=== PATIENT | male | born 2000 | race Hispanic/Latino ===

== ENCOUNTER 2023-01-14 01:40 | Emergency (ER) | payer SELFPAY ==
[2023-01-14] VITALS (11 sets, daily range): BP systolic 108–141; BP diastolic 60–79; PULSE 60–82; RESP 18–20; TEMP 36.8; O2SAT 96–100
--- NOTE | ~2023-01-14 | CT_ITS ---
Non-contrast CT scan of the Abdomen and Pelvis Clinical indication: Kidney stone Technique: 2.5 mm axial scans were obtained through the abdomen and pelvis without intravenous or or al contrast. Dose reduction technique was used on this scan by utilizing automated exposure control a nd iterative reconstruction technique. The dose-length product (DLP) was 161.46 mGy-cm. Findings: Images through the lung bases reveal no abnormalities. There is no evidence of renal or ureteral calculi. The kidneys and the ureters are nondilated. The liver, spleen, pancreas, gallbladder, and adrenals appear normal. There is no aortic aneurysm. There is no evidence of bowel obstruction. Normal appendix probably present. Images through the pelvis were performed. There is no evidence of ascites or lymphadenopathy. Urinary bladder unremarkable. No pelvic mass seen. Impression: No significant abnormality seen. Reviewed, dictated and finalized at [facility]. Impression: No significant abnormality seen.
[2023-01-14 03:05] LABS: Basophils Percent Auto 0.6 % (0.2-1.2); Eosinophils Absolute Auto 0.2 K/mm3 (0-0.3); Eosinophils Percent Auto 2.1 % (0-4.4); Hematocrit 40.7 % (42.0-52.0); Hemoglobin 13.9 g/dL (14.0-18.0); Immature Granulocyte Absolute 0.02 K/mm3 (0.00-0.031); Immature Granulocyte Percent A 0.3 % (0-0.5); Lymphocytes Absolute Auto 2.04 K/mm3 (0.9-3.2); Lymphocytes Percent Auto 28.7 % (18.3-44.2); Mean Corpuscular HGB Conc 34.2 g/dl (32-36); Mean Corpuscular Hemoglobin 28.5 pg (26-34); Mean Corpuscular Volume 83.6 fl (80-100); Mean Platelet Volume 9.3 fl (7.4-10.4); Monocytes Absolute Auto 0.6 K/mm3 (0.1-0.6); Neutrophils Absolute Auto 4.3 K/mm3 (1.3-6.7); Neutrophils Percent Auto 60.3 % (45.5-73.1); Platelet Count Result 244 k/mm3 (150-375); Red Blood Count 4.87 M/mm3 (4.6-6.20); Red Cell Distribution Width 13.1 % (11.5-14.5); White Blood Count 7.1 K/mm3 (4.5-10.0)
[2023-01-14 03:09] LABS: Appearance Urine Clear (Clear); Bilirubin Urine Negative (Negative); Blood Urine Negative (Negative); Color Urine Yellow (Yellow); Glucose Urine UA Negative (Negative); Ketones Urine Negative (Negative); Leukocyte Esterase Ur Negative LEU/UL (Negative); Nitrate Urine Negative (Negative); Protein Urine Negative (Negative); Specific Grav Ur 1.012 (1.001-1.035); pH Urine 6.5 (5.0-9.0)
[2023-01-14 03:10] LABS: Add Urine Microscopic? NO
[2023-01-14 03:14] LABS: Alanine Aminotransferase 26 U/L (6-50); Albumin Level 5.1 g/dL (3.5-5.1); Alkaline Phosphatase 72 U/L (38-126); Anion Gap 10 mmol/L (8-16); Aspartate Amino Transferase 25 U/L (17-59); Bilirubin,Total 0.6 mg/dL (0.2-1.3); Blood Urea Nitrogen 12 mg/dL (9-20); Calcium 9.3 mg/dL (8.4-10.2); Carbon Dioxide 26 mmol/L (22-30); Chloride 101 mmol/L (98-107); Estimated CRCL calculation 108 ml/min; Estimated Glomerular Filt Rate > 60; Glucose 93 mg/dL (65-110); Lipase 39 U/L (23-300); Potassium 3.6 mmol/L (3.4-5.0); Sodium 137 mmol/L (137-145)
[2023-01-14] MEDS: IBUPROFEN 400 MG TABLET 800 MG PO (04:06)
[2023-01-14] MEDS: ACETAMINOPHEN 500 MG TABLET 1000 MG PO (04:07)
[2023-01-14] MEDS: methocarbamoL 750 MG TABLET 1500 MG PO (04:09)
--- NOTE | 2023-01-14 04:41 | ED.GENADULT ---
HPI - General Adult General Chief complaint: Abdominal Pain Stated complaint: abd pain Time Seen by Provider: 01/14/23 02:27 History of Present Illness HPI narrative: 22-year-old Greenlandic-speaking male presenting with flank and suprapubic pain. a certified fraud representative was used for all communication. Patient has been having left-sided flank pain on and off for the last week. Pain started in his left flank and has now migrated to the suprapubic area. It is a sharp pressure-like pain is 8/10 intensity comes and goes. He has never experienced pain like this before there are no exacerbating alleviating factors. He denies dysuria, urinary urgency or frequency. He has not had issues with initiating a urine stream. Denies fever chills nausea vomiting or diarrhea. He has not taken anything for pain. Related Data Allergies Allergy/AdvReac Type Severity Reaction Status Date / Time No Known Allergies Allergy Verified 01/14/23 02:35 Exam Narrative: APPEARANCE: No apparent distress. Head: atraumatic. EYES: EOMI, NOSE: Atraumatic NECK: Trachea midline RESPIRATORY: No increased rate of breathing CTAB CARDIOVASCULAR: RRR, ABDOMINAL: Abdomen is soft nontender with no guarding or rebound. No tenderness in suprapubic area. No CVA tenderness. MUSCULOSKELETAl: No obvious deformities NEURO: Alert. Moving 4/4 extremities SKIN:: Warm, dry. Normal color PSYCHIATRIC: Normal affect Course Vital Signs Vital signs: Vital Signs Temperature 98.2 F 01/14/23 01:44 Pulse Rate 66 01/14/23 01:44 Respiratory Rate 20 01/14/23 01:44 Blood Pressure 141/70 H 01/14/23 01:44 Pulse Oximetry 99 01/14/23 01:44 Oxygen Delivery Room Air 01/14/23 01:44 Temperature 98.2 F 01/14/23 01:44 Pulse Rate 63 01/14/23 04:37 Respiratory Rate 18 01/14/23 04:37 Blood Pressure 113/60 01/14/23 04:37 Pulse Oximetry 99 01/14/23 04:37 Oxygen Delivery Room Air 01/14/23 02:31 Medical Decision Making [facility] Narrative Medical decision making narrative: -Presentation: 22-year-old male presenting with flank pain that migrated to the suprapubic area. -DDX includes but is not limited to: Kidney stone, MSK, UTI -Co-morbidities complicating care: Greenlandic-speaking -Social determinants of health: unemployed, lives with his cousin -Gerardo -External Chart Review: none -Hx from independent Sources: friend Kaitlin at bedside, cousin Gerardo at bedside -Discussion of Management/Consultants: none -Independent interpretation of studies: CBC was normal. Metabolic panel is unremarkable. Urinalysis had no blood or evidence of infection. CT abdomen pelvis showed no evidence of kidney stones. Dx tests considered but not ordered: -Procedures: -Interventions: Motrin, Tylenol, Robaxin -Shared decision making / Disposition: Patient's workup was negative. Patient will be discharged on a course of NSAIDs with primary care follow-up -RX Motrin, Tylenol Vital Signs Vital Signs: Vital Signs Temperature 98.2 F 01/14/23 01:44 Pulse Rate 66 01/14/23 01:44 Respiratory Rate 20 01/14/23 01:44 Blood Pressure 141/70 H 01/14/23 01:44 Pulse Oximetry 99 01/14/23 01:44 Oxygen Delivery Room Air 01/14/23 01:44 Temperature 98.2 F 01/14/23 01:44 Pulse Rate 63 01/14/23 04:37 Respiratory Rate 18 01/14/23 04:37 Blood Pressure 113/60 01/14/23 04:37 Pulse Oximetry 99 01/14/23 04:37 Oxygen Delivery Room Air 01/14/23 02:31 Lab Data 01/14/23 02:52 01/14/23 02:52 Labs: Lab Results 01/14/23 01/14/23 Range/Units 02:52 03:02 WBC 7.1 (4.5-10.0) K/mm3 RBC 4.87 (4.6-6.20) M/mm3 Hgb 13.9 L (14.0-18.0) g/dL Hct 40.7 L (42.0-52.0) % MCV 83.6 (80-100) fl MCH 28.5 (26-34) pg MCHC 34.2 (32-36) g/dl RDW 13.1 (11.5-14.5) % Plt Count 244 (150-375) k/mm3 MPV 9.3 (7.4-10.4) fl Immature Gran % (Auto) 0.3 (0-0.5) %
== END 2023-01-14 07:02 | disposition home or self-care (01) ==
PROVIDERS: Emergency Provider Emergency Medicine
DX: R10.9 Unspecified abdominal pain (principal)
CPT/HCPCS: 36415; 74176; 80053; 81003; 83690; 85025; 99284; A9270

== ENCOUNTER 2024-01-15 19:39 | Emergency (ER) | payer SELFPAY ==
[2024-01-15 19:56] VITALS: BP 109/56; PULSE 75; RESP 16; TEMP 36.8; O2SAT 99
--- NOTE | 2024-01-15 23:30 | ED.EYEPROB ---
HPI - Eye Problem General Chief complaint: Eye Problems Stated complaint: foreign body in eye Time Seen by Provider: 01/15/24 22:52 Source: patient Mode of arrival: ambulatory Limitations: language barrier History of Present Illness HPI Narrative: This is a 23-year-old male who presents to the ED with chief complaint of right eye pain and burning onset yesterday after injury. Patient reports that he accidentally got some kitchen fuse maker in his eye while cleaning. Patient reports that the eye has been constant burning and irritated since. Really is not having visual changes. States he tried to get in the shower and clean the eye out after happened but this does not seem to help. Denies headache, any further injury. History somewhat limited due to patient [place]amanian-speaking. He speaks some Bolivian and has a friend who is helping translate as well. Related Data Allergies Allergy/AdvReac Type Severity Reaction Status Date / Time No Known Allergies Allergy Verified 01/14/23 02:35 Review of Systems Review of Systems: All systems as dictated in HPI Exam Narrative: GENERAL: Well-appearing, well-nourished, and in no acute distress. HEAD: Normocephalic, atraumatic. EYES: PERRLA and EOMI. Right eye conjunctiva erythematous. There is an obvious hull/white lesion to the 3 o'clock position of the cornea. Wood's lamp with fluorescein stain does show uptake at area of the lesion. ENT: Nares clear, no rhinorrhea or epistaxis. Mucous membranes moist. Oropharynx without tonsillar hypertrophy exudate or other lesions. NECK: Supple. No adenopathy or masses. CHEST: No respiratory distress. Clear to auscultation. No wheezes rales or rhonchi HEART: Regular rate and rhythm. No murmur heard. Normal peripheral pulses. ABDOMEN: Soft, nontender, nondistended, normal active bowel sounds. MSK: Normal range of motion. No edema. SKIN: Warm, dry, no rash. NEURO: Alert and oriented x4. No focal deficits. PSYCH: Normal mood and affect. Course Consultations Consultation #1: Consult Dr. Soto ([facility]); discussed the results of the history and exam with him and my concern for corneal ulceration or alkali burn injury.. He feels reassured by the fact that the patient did have fluoroscein uptake over the eye lesion. States is more likely corneal abrasion than ulceration or significant burn injury. he is comfortable with patient following up in clinic on Thursday. Recommend starting on artificial tears and Vigamox drops Vital Signs Vital signs: Vital Signs Temperature 98.2 F 01/15/24 19:56 Pulse Rate 75 01/15/24 19:56 Respiratory Rate 16 01/15/24 19:56 Blood Pressure 109/56 L 01/15/24 19:56 Pulse Oximetry 99 01/15/24 19:56 Oxygen Delivery Room Air 01/15/24 19:56 Temperature 98.2 F 01/15/24 19:56 Pulse Rate 75 01/15/24 19:56 Respiratory Rate 16 01/15/24 19:56 Blood Pressure 109/56 L 01/15/24 19:56 Pulse Oximetry 99 01/15/24 19:56 Oxygen Delivery Room Air 01/15/24 19:56 MDM - Eye Problem MDM Narrative Medical decision making narrative: This is a 23-year-old male who presents to the ED with chief complaint of right eye pain and irritation for the past day after spilling kitchen fuse maker on it. Vitals are normal Exam shows an obvious hull/white lesion to the cornea that is visible to naked eye. There is fluoroscein uptake. Visual acuity intact. Discussed case with [facility] who feels reassured by dye uptake on exam. State is more likely abrasion and they are comfortable with him following up in clinic next week. Patient was given information for follow-up and started on Vigamox drops and artificial tears. Pt will be discharged in stable condition. Return precautions given and supportive measures discussed. Pt is understanding and agreeable with plan for discharge and follow-up with PCP/optho Differential Diagnosis Differential diagnosis: Likely corneal abrasion, conjunctivitis, subco
[2024-01-16] MEDS: MOXIFLOXACIN HCL 0.5% 3 ML OPHTH SOLN 1 DROP AFFCTD EYE (00:22)
== END 2024-01-16 00:20 | disposition home or self-care (01) ==
PROVIDERS: Emergency Provider Physician Assistant
DX: S05.01XA Injury of conjunctiva and corneal abrasion without foreign body, right eye, initial encounter (principal); X58.XXXA Exposure to other specified factors, initial encounter
CPT/HCPCS: 99283; A9270